=== PATIENT | female | born 2000 | race Two or more races ===

== ENCOUNTER 2022-12-15 13:01 | Emergency (ER) | payer OTHER ==
[~2022-12-15] VITALS: Ht 157.5 cm; Wt 63.5 kg
[2022-12-15] MEDS ORDERED: TYLENOL ARTHRI650 MG PO (19:20)
[2022-12-15] MEDS ORDERED: CYCLOBENZAPRINE10 MG PO (19:20)
== END 2022-12-15 19:44 | disposition home or self-care (01) ==
LOC: ER 13:01
DX: M62.830 Muscle spasm of back (principal); Z88.6 Allergy status to analgesic agent

== ENCOUNTER 2024-05-18 11:31 | Emergency (ER) | payer OTHER ==
[~2024-05-18] VITALS: Ht 157.5 cm; Wt 54.4 kg
[~2024-05-18 11:31] MED LIST: CYCLOBENZAPRINE10 MG PO; TYLENOL ARTHRI650 MG PO
[2024-05-18] MEDS ORDERED: NORFLEX100MG PO (12:22)
[2024-05-18] MEDS ORDERED: BACTRIM 400-801 EACH PO (12:22)
[2024-05-18 16:03] LABS: HEMATOCRIT 35.2 % (36.0-45.00); HEMOGLOBIN 11.9 g/dL (12.0-15.00); MEAN CELL VOLUME 92.6 fL (80.00-100.00); MEAN CORPUSCULAR HEMOGLOBIN 31.3 pg (27.00-32.0); MEAN CORPUSCULAR HGB CONC 33.8 g/dl (32.0-36.0); PLATELET COUNT 229 K/uL (150-450); RED CELL DISTRIBUTION WIDTH 13.8 % (11.5-14.5)
[2024-05-18 16:20] LABS: URINE APPEARANCE Clear; URINE BILIRRUBIN Negative (NEGATIVE); URINE BLOOD Large; URINE COLOR Yellow; URINE GLUCOSE Negative (NEGATIVE); URINE KETONE Negative (NEGATIVE); URINE LEUKOCYTE Trace; URINE NITRATE Negative; URINE PROTEIN Trace (NEGATIVE); URINE UROBILINOGEN 0.2 E.U./dl
[2024-05-18 16:23] LABS: URINE BACTERIA 37.9 uL (0.0-1933); URINE EPITHELIAL CELLS 14.2 uL (0.0-38.8); URINE RBC 105.6 uL (0.0-20.8); URINE WBC 17.2 uL (0.0-23.2)
[2024-05-18 16:28] LABS: CALCIUM 9.2 mg/dL (8.5-10.1); CREATININE SERUM 0.76 mg/dL (0.55-1.02); GFR 92.72; POTASSIUM 3.85 mEq/L (3.5-5.1)
[2024-05-18] MEDS ORDERED: KETO10TA2 PO (20:21)
== END 2024-05-18 20:38 | disposition home or self-care (01) ==
LOC: ER 11:33
PROVIDERS: General Practice
DX: R30.0 Dysuria (principal); N39.0 Urinary tract infection, site not specified; R10.2 Pelvic and perineal pain; Z88.6 Allergy status to analgesic agent

== ENCOUNTER 2024-06-16 14:53 | Emergency (ER) | payer OTHER ==
[~2024-06-16] VITALS: Ht 160 cm; Wt 54.4 kg
[~2024-06-16 14:53] MED LIST changes: +BACTRIM 400-801 EACH PO; +KETO10TA2 PO; +NORFLEX100MG PO
[2024-06-16 15:59] VITALS: BP 118/77; O2SAT 98
[2024-06-16] MEDS ORDERED: ONDANSETRON HCL 2 MG/ML VIAL IV ONE (16:45)
[2024-06-16] MEDS ORDERED: TAMSULOSIN HCL 0.4 MG CAP PO ONE ×2 (16:45→16:56)
[2024-06-16] MEDS ORDERED: FAMOtidine 10 MG/ML (4ML VIAL) IV ONE (16:45)
[2024-06-16] MEDS ORDERED: MEPERIDINE HCL/PF 50 MG/ML VIAL IM ONE (16:45)
[2024-06-16] MEDS ORDERED: CEFTRIAXONE SODIUM 1,000 MG VIAL ONE (16:56)
[2024-06-16] MEDS ORDERED: FAMOTIDINE/PF 20 MG/2 ML VIAL ONE (16:56)
[2024-06-16] MEDS ORDERED: ONDANSETRON HCL 2 MG/ML VIAL ONE (16:56)
[2024-06-16] MEDS ORDERED: 0.9 % SODIUM CHLORIDE 1,000 ML IV ONE (17:00)
[2024-06-16] MEDS ORDERED: CEFTRIAXONE SODIUM 1,000 MG VIAL IV ONE (17:00)
[2024-06-16 18:07] LABS: HEMATOCRIT 35.9 % (36.0-45.00); HEMOGLOBIN 12.2 g/dL (12.0-15.00); MEAN CELL VOLUME 92.2 fL (80.00-100.00); MEAN CORPUSCULAR HEMOGLOBIN 31.4 pg (27.00-32.0); PLATELET COUNT 222 K/uL (150-450); RED BLOOD COUNT 3.89 M/uL (4.00-6.00); RED CELL DISTRIBUTION WIDTH 13.4 % (11.5-14.5)
[2024-06-16 18:34] LABS: ALKALINE PHOSPHATASE 64 U/L (50-136); ALT/SGPT 19 U/L (12-78); ANION GAP 7 (10.0-20.0); AST/SGOT 13 U/L (15-37); BLOOD UREA NITROGEN 9 mg/dL (7-18); BUN CREA RATIO 12 (7.0-25.0); CALCIUM 9.6 mg/dL (8.5-10.1); CARBON DIOXIDE 29 mEq/L (21-32); CHLORIDE 110 mmol/L (98-107); CREATININE SERUM 0.78 mg/dL (0.55-1.02); GFR 89.99; GLOBULINA 3.4 G/DL (2.4-3.5); GLUCOSE FASTING 100 mg/dL (65-100); OSMOLALITY SERUM 284 MOSM/KG (275-295); POTASSIUM 3.36 mEq/L (3.5-5.1); SODIUM 143 mmol/L (136-145); TOTAL PROTEIN 7.4 gm/dL (6.4-8.2)
[2024-06-16 18:35] LABS: HCG QUANTITATIVE < 1 mUI/mL (1-3)
[2024-06-16 18:58] LABS: URINE APPEARANCE Cloudy; URINE BILIRRUBIN Negative (NEGATIVE); URINE BLOOD Small; URINE COLOR Yellow; URINE GLUCOSE Negative (NEGATIVE); URINE KETONE Trace (NEGATIVE); URINE LEUKOCYTE Large; URINE NITRATE Negative; URINE PROTEIN Negative (NEGATIVE); URINE UROBILINOGEN 0.2 E.U./dl
[2024-06-16 19:01] LABS: URINE BACTERIA 156.6 uL (0.0-1933); URINE EPITHELIAL CELLS 6.9 uL (0.0-38.8); URINE RBC 26.6 uL (0.0-20.8); URINE WBC 422.7 uL (0.0-23.2)
[2024-06-16 19:18] LABS: INR 1.05; PARTIAL THROMBOPLASTIN TIME 27.2 SECONDS (22.0-34.0); PROTHROMBIN TIME 11.4 SECONDS (9.0-11.5)
[2024-06-16] MEDS ORDERED: METRONIDAZOLE500 MG PO (21:15)
[2024-06-16] MEDS ORDERED: DOXYCYCLINE HY100 MG PO (21:15)
[2024-06-16] MEDS ORDERED: DOLOGEN 325-11 EACH PO (21:15)
[2024-06-16] MEDS ORDERED: PEPCID AC20 MG PO (21:15)
[2024-06-16] MEDS ORDERED: NORFLEX100MG PO (21:15)
[2024-06-16] MEDS ORDERED: PYRIDIUM DS200 MG PO (21:23)
[2024-06-16] MEDS ORDERED: KETOROLAC TROMETHAMINE 60 MG VIAL IM ONE ×2 (21:30→21:36)
== END 2024-06-16 21:45 | disposition home or self-care (01) ==
LOC: ER 14:55
PROVIDERS: General Practice
DX: N73.8 Other specified female pelvic inflammatory diseases (principal); N39.0 Urinary tract infection, site not specified; Z88.6 Allergy status to analgesic agent
CPT/HCPCS: 36415; 74177; 96365; 96372; 99284; J0696; J1885; J2405; J3490; J7030; Q9965